=== PATIENT | male | born 1955 | race Asian ===

== ENCOUNTER 2016-11-16 07:43 | Outpatient (CLI) | payer OTHER ==
[~2016-11-16 07:43] MED LIST: B-121000 MCG SL; CELE200C2 PO; EZET10TA13 PO; FUROSEMIDE40 MG PO; GLIP10TA55 PO; INSU100P SC; INSUINJP SC; LISI20TA11 PO; LOFIBRA160 MG PO; METF500T PO; PRAVACHOL20 MG PO; WARFARIN5 MG PO
== END 2016-11-16 08:43 | disposition home or self-care (01) ==
LOC: LABW 07:43
DX: E11.9 Type 2 diabetes mellitus without complications (principal); D68.8 Other specified coagulation defects
CPT/HCPCS: 36415; 83036; 85610

== ENCOUNTER 2016-11-25 08:00 | Outpatient (CLI) | payer OTHER | END 2016-11-25 19:56 | disposition home or self-care (01) | LOC: LABW 08:00 | DX: M25.512 Pain in left shoulder (principal); E11.9 Type 2 diabetes mellitus without complications; D68.9 Coagulation defect, unspecified | CPT/HCPCS: 36415; 84681; 85610 ==

== ENCOUNTER 2016-12-02 10:45 | Inpatient (IN) | payer OTHER ==
[~2016-12-02] VITALS: Ht 182.9 cm; Wt 127.5 kg
[2016-12-02 12:00] VITALS: BP 145/84; TEMP 99.1
[2016-12-02 12:39] LABS: PLATELET COUNT 260 K/uL (142-355)
[2016-12-02 13:43] LABS: POTASSIUM 3.6 mmol/L (3.6-5.2); SODIUM 139 mmol/L (136-145)
[2016-12-02 13:44] VITALS: BP 145/84; TEMP 99.1; Ht 182.9 cm; Wt 127.5 kg
[2016-12-02 16:00] VITALS: BP 142/78; TEMP 98.6
[2016-12-02 20:20] VITALS: BP 115/66; TEMP 99.2
[2016-12-03 00:24] VITALS: BP 119/60; TEMP 98.9
[2016-12-03 05:08] LABS: PLATELET COUNT 263 K/uL (142-355)
[2016-12-03 05:29] LABS: POTASSIUM 4.3 mmol/L (3.6-5.2); SODIUM 137 mmol/L (136-145)
[2016-12-03 05:34] VITALS: BP 147/97; TEMP 98.3
[2016-12-03 05:41] LABS: PARTIAL THROMBOPLASTIN TIME 36.6 SECONDS (24.5-33.6)
[2016-12-03 08:00] VITALS: BP 141/94; TEMP 97.8
[2016-12-03] MEDS ORDERED: FLUTMIS6 INH (10:47)
[2016-12-03] MEDS ORDERED: TUDORZA PR400 MG/ACT IN (10:49)
[2016-12-03] MEDS ORDERED: LOFIBRA160 MG OR (10:51)
[2016-12-03] MEDS ORDERED: NOVOLOG SC (10:53)
[2016-12-03 12:00] VITALS: BP 135/92; TEMP 97.8
[2016-12-03 16:00] VITALS: BP 112/60; TEMP 98.2
[2016-12-03 20:09] VITALS: BP 132/74; TEMP 98.8
[2016-12-04 00:04] VITALS: BP 117/68; TEMP 98.3
[2016-12-04 05:35] VITALS: BP 122/74; TEMP 98.2
[2016-12-04 06:38] LABS: PLATELET COUNT 227 K/uL (142-355); POTASSIUM 3.9 mmol/L (3.6-5.2); SODIUM 138 mmol/L (136-145)
[2016-12-04 08:00] VITALS: BP 131/76; TEMP 98.9
[2016-12-04 12:00] VITALS: BP 108/58; TEMP 97.8
[2016-12-04 16:00] VITALS: BP 148/51; TEMP 97.8
[2016-12-04 20:00] VITALS: BP 126/60; TEMP 99.2
[2016-12-05 00:25] VITALS: BP 115/68; TEMP 98.3
[2016-12-05 05:35] VITALS: BP 128/78; TEMP 98.2
[2016-12-05 06:17] LABS: PLATELET COUNT 229 K/uL (142-355)
[2016-12-05 06:29] LABS: SODIUM 136 mmol/L (136-145)
[2016-12-05 08:15] VITALS: BP 155/96; TEMP 98.9
[2016-12-05 12:00] VITALS: BP 152/97; TEMP 97.6
== END 2016-12-05 12:20 | disposition home or self-care (01) | DRG 392 ==
LOC: MED/SURG 10:45
PROVIDERS: Emergency Medicine; ADMIT Internal Medicine
DX: K57.32 Diverticulitis of large intestine without perforation or abscess without bleeding (principal); N39.0 Urinary tract infection, site not specified; R10.30 Lower abdominal pain, unspecified; E11.9 Type 2 diabetes mellitus without complications; N40.0 Benign prostatic hyperplasia without lower urinary tract symptoms
CPT/HCPCS: 36415; 36591; 80053; 81000; 82150; 82948; 83036; 83690; 84153; 84681; 85027; 85610; 85730; 87088; 94640; 94664; 94760; 96365; 96366; 96367; 96372; J0744; J2175; J3490; Q9963

== ENCOUNTER 2016-12-21 07:36 | Outpatient (CLI) | payer OTHER ==
[~2016-12-21 07:36] MED LIST changes: +FLUTMIS6 INH; +LOFIBRA160 MG OR; +NOVOLOG SC; +TUDORZA PR400 MG/ACT IN
== END 2016-12-21 19:05 | disposition home or self-care (01) ==
LOC: MRI 07:36
DX: M75.52 Bursitis of left shoulder (principal)

== ENCOUNTER 2016-12-22 11:15 | Outpatient (CLI) | payer OTHER ==
[2016-12-22 12:59] LABS: POTASSIUM 3.8 mmol/L (3.6-5.2)
== END 2016-12-22 19:08 | disposition home or self-care (01) ==
LOC: LABW 11:15
PROVIDERS: Internal Medicine Nephrology
DX: R80.1 Persistent proteinuria, unspecified (principal)
CPT/HCPCS: 36415; 80069; 81000; 82570; 83516; 84155; 86039; 86160; 86225; 86255; 86317; 86704; 86705; 86803

== ENCOUNTER 2017-02-03 07:42 | Outpatient (CLI) | payer OTHER | END 2017-02-03 19:58 | disposition home or self-care (01) | LOC: LABW 07:42 | DX: E11.9 Type 2 diabetes mellitus without complications (principal); D68.8 Other specified coagulation defects | CPT/HCPCS: 36415; 83036; 85610 ==

== ENCOUNTER 2017-03-03 14:15 | Outpatient (CLI) | payer OTHER ==
[2017-03-03 15:06] LABS: POTASSIUM 3.7 mmol/L (3.6-5.2)
[2017-03-03 15:32] LABS: PLATELET COUNT 270 K/uL (142-355)
== END 2017-03-03 19:22 | disposition home or self-care (01) ==
LOC: LABW 14:15
PROVIDERS: Internal Medicine Nephrology
DX: D68.8 Other specified coagulation defects (principal); R80.1 Persistent proteinuria, unspecified
CPT/HCPCS: 36415; 80069; 81000; 82570; 84155; 85027; 85610

== ENCOUNTER 2017-03-14 08:56 | Outpatient (CLI) | payer OTHER ==
[2017-03-14 09:52] LABS: POTASSIUM 3.8 mmol/L (3.6-5.2)
== END 2017-03-14 19:06 | disposition home or self-care (01) ==
LOC: LABW 08:56
PROVIDERS: Internal Medicine Nephrology
DX: R80.1 Persistent proteinuria, unspecified (principal)
CPT/HCPCS: 36415; 80048

== ENCOUNTER 2017-04-11 09:03 | Outpatient (CLI) | payer OTHER | END 2017-04-11 19:29 | disposition home or self-care (01) | LOC: LAB 09:03 → CT 09:03 | DX: K57.32 Diverticulitis of large intestine without perforation or abscess without bleeding (principal) | CPT/HCPCS: 36415; 82565; 84520; 85610; Q9963 ==

== ENCOUNTER 2017-04-20 17:07 | Inpatient (IN) | payer OTHER ==
[~2017-04-20] VITALS: Ht 182.9 cm; Wt 122.9 kg
--- NOTE | 2017-04-20 17:04 | NUR ---
PT TO ROOM 1104. ORIENTED TO ROOM AND CONTROLS. PT VERBALIZED UNDERSTANDING. ASSESSMENT COMPLETE. 1830- IV STARTED TO L AC WITH 22G ANGIOCATH X 1 ATTEMPT. PT TOLERATED WELL. LABS DRAWN.
[2017-04-20 18:32] VITALS: BP 90/56; TEMP 98; Ht 182.9 cm; Wt 122.9 kg
[2017-04-20 19:05] LABS: PLATELET COUNT 326 K/uL (142-355)
--- NOTE | 2017-04-20 19:10 | NUR ---
Orthostatic blood pressure (vital signs) taken at 1745 Layin.2, 92, 22, 94/59, 98% Sittin.2, 100, 21, 105/61, 98% Standin.2, 103, 22, 112/58, 97%
[2017-04-20 19:29] LABS: POTASSIUM 4.2 mmol/L (3.6-5.2); SODIUM 138 mmol/L (136-145)
[2017-04-20 20:00] VITALS: BP 113/84; TEMP 99.2
[2017-04-21 00:01] VITALS: BP 102/72; TEMP 98
[2017-04-21] MEDS ORDERED: TAMS0.4C PO (00:56)
[2017-04-21] MEDS ORDERED: EZET10TA13 OR (00:57)
[2017-04-21] MEDS ORDERED: FENOFIBRATE50 MG PO (00:59)
[2017-04-21] MEDS ORDERED: METR250T19 PO (01:03)
[2017-04-21] MEDS ORDERED: CIPRO500 MG PO (01:04)
[2017-04-21] MEDS ORDERED: FLUTMIS6 INH (01:06)
[2017-04-21 04:00] VITALS: BP 90/66; TEMP 97.7
[2017-04-21 05:04] LABS: PLATELET COUNT 307 K/uL (142-355)
[2017-04-21 05:29] LABS: POTASSIUM 4.5 mmol/L (3.6-5.2)
[2017-04-21 08:00] VITALS: BP 116/84; TEMP 98
[2017-04-21 12:09] VITALS: BP 122/70; TEMP 97.3
[2017-04-21 15:59] VITALS: BP 100/58; TEMP 98
[2017-04-21 20:00] VITALS: BP 100/44; TEMP 98.3
[2017-04-22] VITALS: BP 107/50; TEMP 98.4
[2017-04-22 04:00] VITALS: BP 103/68; TEMP 97.7
[2017-04-22 05:12] LABS: SODIUM 142 mmol/L (136-145)
[2017-04-22 05:18] LABS: PLATELET COUNT 303 K/uL (142-355)
[2017-04-22 05:42] LABS: PARTIAL THROMBOPLASTIN TIME 34.3 SECONDS (24.5-33.6)
[2017-04-22 08:00] VITALS: BP 109/67; TEMP 97.7
[2017-04-22 12:00] VITALS: BP 129/80; TEMP 98.4
[2017-04-22 16:00] VITALS: BP 102/57; TEMP 98.3
[2017-04-22 20:00] VITALS: BP 110/72; TEMP 98.1
[2017-04-23] VITALS: BP 109/70; TEMP 97.7
[2017-04-23 04:00] VITALS: BP 119/77; TEMP 97
[2017-04-23 06:25] LABS: PLATELET COUNT 264 K/uL (142-355)
[2017-04-23 07:09] LABS: POTASSIUM 4.1 mmol/L (3.6-5.2); SODIUM 141 mmol/L (136-145)
[2017-04-23 07:19] LABS: PARTIAL THROMBOPLASTIN TIME 28.5 SECONDS (24.5-33.6)
[2017-04-23 08:00] VITALS: BP 122/82; TEMP 98
[2017-04-23 12:00] VITALS: BP 107/71; TEMP 98.1
--- NOTE | 2017-04-23 15:45 | NUR ---
IV D/C'd. NO REDNESS OR EDEMA OBSERVED. DISCHARGE INSTRUCTIONS SIGNED AND GIVEN. Pt. EXIT OUT FRONT ENTRANCE AMBULATING. NO DISTRESS OBSERVED.
== END 2017-04-23 15:45 | disposition home or self-care (01) | DRG 315 ==
LOC: MED/SURG 17:07
PROVIDERS: Emergency Medicine; ADMIT Internal Medicine
DX: I95.89 Other hypotension (principal); K57.92 Diverticulitis of intestine, part unspecified, without perforation or abscess without bleeding; R53.1 Weakness; E11.40 Type 2 diabetes mellitus with diabetic neuropathy, unspecified; J44.9 Chronic obstructive pulmonary disease, unspecified; E11.649 Type 2 diabetes mellitus with hypoglycemia without coma; Z79.4 Long term (current) use of insulin; Z96.41 Presence of insulin pump (external) (internal)
CPT/HCPCS: 36415; 80053; 81000; 82085; 82533; 82550; 82948; 83735; 84443; 84484; 85027; 85610; 85651; 85730; 93005; 96361; 96365; 96372; 99220; G0378; G0379

== ENCOUNTER 2017-06-12 08:26 | Outpatient (CLI) | payer OTHER ==
[~2017-06-12 08:26] MED LIST changes: +CIPRO500 MG PO; +EZET10TA13 OR; +FENOFIBRATE50 MG PO; +METR250T19 PO; +TAMS0.4C PO
== END 2017-06-12 09:30 | disposition home or self-care (01) ==
LOC: LABW 08:26
DX: D68.8 Other specified coagulation defects (principal); E11.9 Type 2 diabetes mellitus without complications
CPT/HCPCS: 36415; 83036; 85610

== ENCOUNTER 2017-06-15 11:31 | Outpatient (CLI) | payer OTHER ==
[2017-06-15 12:21] LABS: PLATELET COUNT 240 K/uL (142-355)
[2017-06-15 12:48] LABS: POTASSIUM 4.1 mmol/L (3.6-5.2)
== END 2017-06-15 19:58 | disposition home or self-care (01) ==
LOC: LABW 11:31
PROVIDERS: Internal Medicine Nephrology
DX: R80.1 Persistent proteinuria, unspecified (principal)
CPT/HCPCS: 36415; 80069; 81000; 82570; 84155; 85027

== ENCOUNTER 2017-07-28 07:44 | Outpatient (CLI) | payer OTHER | END 2017-07-28 08:45 | disposition home or self-care (01) | LOC: LABW 07:44 | DX: D68.8 Other specified coagulation defects (principal) | CPT/HCPCS: 36415; 85610 ==

== ENCOUNTER 2017-08-28 08:00 | Outpatient (CLI) | payer OTHER | END 2017-08-28 09:00 | disposition home or self-care (01) | LOC: EDSTATUS 08:00 → LABW 08:00 | DX: D68.8 Other specified coagulation defects (principal) | CPT/HCPCS: 36415; 85610 ==

== ENCOUNTER 2017-10-10 07:54 | Outpatient (CLI) | payer OTHER | END 2017-10-10 19:07 | disposition home or self-care (01) | LOC: LABW 07:54 | DX: E11.9 Type 2 diabetes mellitus without complications (principal); D68.8 Other specified coagulation defects | CPT/HCPCS: 36415; 83036; 85610 ==

== ENCOUNTER 2017-10-31 07:58 | Outpatient (CLI) | payer OTHER | END 2017-10-31 18:00 | disposition home or self-care (01) | LOC: LABW 07:58 | DX: D68.8 Other specified coagulation defects (principal) | CPT/HCPCS: 36415; 85610 ==

== ENCOUNTER 2017-12-01 09:34 | Outpatient (CLI) | payer OTHER ==
[2017-12-01 10:20] LABS: PLATELET COUNT 293 K/uL (142-355)
[2017-12-01 10:45] LABS: POTASSIUM 4.1 mmol/L (3.6-5.2)
== END 2017-12-01 19:28 | disposition home or self-care (01) ==
LOC: LABW 09:34
PROVIDERS: Internal Medicine Nephrology
DX: D68.8 Other specified coagulation defects (principal); R80.1 Persistent proteinuria, unspecified
CPT/HCPCS: 36415; 80069; 82570; 84155; 85027; 85610

== ENCOUNTER 2017-12-04 07:51 | Outpatient (CLI) | payer OTHER | END 2017-12-04 19:39 | disposition home or self-care (01) | LOC: RESP 07:51 | DX: J44.9 Chronic obstructive pulmonary disease, unspecified (principal) | CPT/HCPCS: 94664 ==

== ENCOUNTER 2017-12-27 08:15 | Outpatient (CLI) | payer OTHER | END 2017-12-27 19:20 | disposition home or self-care (01) | LOC: LABW 08:15 | DX: E11.9 Type 2 diabetes mellitus without complications (principal); D68.8 Other specified coagulation defects | CPT/HCPCS: 36415; 83036; 85610 ==

== ENCOUNTER 2018-01-03 07:58 | Outpatient (CLI) | payer OTHER | END 2018-01-03 22:10 | disposition home or self-care (01) | LOC: LABW 07:58 | DX: E11.9 Type 2 diabetes mellitus without complications (principal) | CPT/HCPCS: 36415; 82947; 83036; 84681 ==

== ENCOUNTER 2018-02-28 09:50 | Outpatient (CLI) | payer OTHER | END 2018-02-28 20:54 | disposition home or self-care (01) | LOC: LABW 09:50 | DX: D68.8 Other specified coagulation defects (principal) | CPT/HCPCS: 36415; 85610 ==

== ENCOUNTER 2018-03-22 07:57 | Outpatient (CLI) | payer OTHER | END 2018-03-22 22:03 | disposition home or self-care (01) | LOC: RAD 07:57 | DX: M54.5 Low back pain (principal) ==

== ENCOUNTER 2018-05-17 10:17 | Outpatient (CLI) | payer OTHER | END 2018-05-17 19:36 | disposition home or self-care (01) | LOC: LABW 10:17 | DX: E11.9 Type 2 diabetes mellitus without complications (principal); D68.8 Other specified coagulation defects | CPT/HCPCS: 36415; 82947; 83036; 84681; 85610 ==

== ENCOUNTER 2018-05-31 07:42 | Outpatient (CLI) | payer OTHER | END 2018-05-31 22:46 | disposition home or self-care (01) | LOC: LABW 07:42 | DX: D68.8 Other specified coagulation defects (principal) | CPT/HCPCS: 36415; 85610 ==

== ENCOUNTER 2018-06-12 10:32 | Inpatient (IN) | payer OTHER ==
[~2018-06-12] VITALS: Ht 180.3 cm; Wt 137.7 kg
[2018-06-12] VITALS (14 sets, daily range): BP systolic 80–120; BP diastolic 50–89; TEMP 99.8–103.3; Ht 180.3 cm; Wt 137.7 kg
[2018-06-12 12:12] LABS: PLATELET COUNT 203 K/uL (142-355)
[2018-06-12 12:42] LABS: POTASSIUM 4.1 mmol/L (3.6-5.2)
[2018-06-12] MEDS ORDERED: FINASTERIDE5 MG PO (15:05)
[2018-06-12] MEDS ORDERED: GABA300C2 PO (15:05)
[2018-06-12] MEDS ORDERED: TIZA4TAB5 PO (15:06)
[2018-06-12] MEDS ORDERED: TUDORZA PR400 MG/ACT IN (15:06)
[2018-06-13] VITALS (30 sets, daily range): BP systolic 80–180; BP diastolic 48–90; TEMP 98.3–99
[2018-06-13 07:12] LABS: PLATELET COUNT 160 K/uL (142-355)
[2018-06-13 08:03] LABS: POTASSIUM 4.2 mmol/L (3.6-5.2)
[2018-06-14] VITALS (20 sets, daily range): BP systolic 100–144; BP diastolic 58–98; TEMP 92–99.7
[2018-06-14 09:29] LABS: PLATELET COUNT 160 K/uL (142-355)
[2018-06-14 09:38] LABS: POTASSIUM 4.3 mmol/L (3.6-5.2)
[2018-06-15] VITALS (22 sets, daily range): BP systolic 11–154; BP diastolic 51–92; TEMP 98.2–99
[2018-06-15 08:12] LABS: PLATELET COUNT 165 K/uL (142-355)
[2018-06-15 08:23] LABS: POTASSIUM 4.7 mmol/L (3.6-5.2)
[2018-06-16] VITALS (14 sets, daily range): BP systolic 118–168; BP diastolic 57–91; TEMP 98.3–99.6
[2018-06-16 07:14] LABS: PLATELET COUNT 188 K/uL (142-355)
[2018-06-16 07:25] LABS: POTASSIUM 4.6 mmol/L (3.6-5.2)
[2018-06-17 00:11] VITALS: BP 145/74; TEMP 98.1
[2018-06-17 04:05] VITALS: BP 141/83; TEMP 98.4
[2018-06-17 06:47] LABS: PLATELET COUNT 196 K/uL (142-355)
[2018-06-17 06:56] LABS: POTASSIUM 4.7 mmol/L (3.6-5.2)
[2018-06-17 08:00] VITALS: BP 128/68; TEMP 98.6
[2018-06-17 12:00] VITALS: BP 134/79; TEMP 98.3
[2018-06-17 16:00] VITALS: BP 127/80; TEMP 98.6
[2018-06-17 20:00] VITALS: BP 148/88; TEMP 98.7
[2018-06-18] VITALS: BP 126/83; TEMP 98.5
[2018-06-18 04:00] VITALS: BP 131/78; TEMP 98.1
[2018-06-18 08:10] VITALS: BP 146/80; TEMP 98.3
[2018-06-18 12:06] VITALS: BP 139/74; TEMP 98.6
== END 2018-06-18 18:30 | disposition home or self-care (01) | DRG 871 ==
LOC: MED/SURG 10:32 → ICU 16:15 → MED/SURG 06-16 11:29
PROVIDERS: ADMIT Internal Medicine
DX: A40.1 Sepsis due to streptococcus, group B (principal); J18.8 Other pneumonia, unspecified organism; D68.8 Other specified coagulation defects; J44.1 Chronic obstructive pulmonary disease with (acute) exacerbation; J44.0 Chronic obstructive pulmonary disease with (acute) lower respiratory infection; L03.115 Cellulitis of right lower limb; I10 Essential (primary) hypertension; E78.4 Other hyperlipidemia; Z85.118 Personal history of other malignant neoplasm of bronchus and lung; K57.90 Diverticulosis of intestine, part unspecified, without perforation or abscess without bleeding; G47.33 Obstructive sleep apnea (adult) (pediatric); E11.42 Type 2 diabetes mellitus with diabetic polyneuropathy; I95.89 Other hypotension; Z79.01 Long term (current) use of anticoagulants; Z79.4 Long term (current) use of insulin; E83.42 Hypomagnesemia
CPT/HCPCS: 36415; 36600; 80053; 80202; 82805; 82962; 83036; 83605; 83735; 84550; 85027; 85610; 85651; 87040; 87070; 87077; 87185; 87186; 87205; 93005; 94640; 94664; 94760; J0290; J0696; J1815; J1956; J2543; J3370; J3475; J7040

== ENCOUNTER 2018-06-26 07:53 | Outpatient (CLI) | payer OTHER ==
[~2018-06-26 07:53] MED LIST changes: +FINASTERIDE5 MG PO; +GABA300C2 PO; +TIZA4TAB5 PO
[2018-06-26 08:52] LABS: POTASSIUM 4.2 mmol/L (3.6-5.2)
== END 2018-06-26 19:56 | disposition home or self-care (01) ==
LOC: LABW 07:53
PROVIDERS: Internal Medicine Nephrology
DX: R80.1 Persistent proteinuria, unspecified (principal)
CPT/HCPCS: 36415; 80048; 82570; 84155

== ENCOUNTER 2018-08-13 10:17 | Outpatient (CLI) | payer OTHER | END 2018-08-13 19:55 | disposition home or self-care (01) | LOC: LABW 10:17 | DX: L03.115 Cellulitis of right lower limb (principal); D68.9 Coagulation defect, unspecified; E11.9 Type 2 diabetes mellitus without complications | CPT/HCPCS: 36415; 83036; 85610; 87070; 87077; 87185; 87205 ==

== ENCOUNTER 2018-10-29 09:12 | Outpatient (CLI) | payer OTHER ==
[2018-10-29 09:52] LABS: PLATELET COUNT 251 K/uL (142-355)
== END 2018-10-29 19:04 | disposition home or self-care (01) ==
LOC: LABW 09:12
PROVIDERS: Internal Medicine
DX: Z00.00 Encounter for general adult medical examination without abnormal findings (principal); D68.9 Coagulation defect, unspecified; E11.9 Type 2 diabetes mellitus without complications
CPT/HCPCS: 36415; 80053; 80061; 81000; 82043; 82570; 83036; 84439; 84443; 85027; 85610

== ENCOUNTER 2018-12-05 08:17 | Outpatient (CLI) | payer OTHER | END 2018-12-05 22:04 | disposition home or self-care (01) | LOC: LABW 08:17 | DX: E11.42 Type 2 diabetes mellitus with diabetic polyneuropathy (principal); R79.1 Abnormal coagulation profile | CPT/HCPCS: 36415; 82947; 84681; 85610; 86341 ==

== ENCOUNTER 2019-01-02 07:48 | Outpatient (CLI) | payer OTHER | END 2019-01-02 20:00 | disposition home or self-care (01) | LOC: LABW 07:48 → RESP 07:48 → LABW 20:00 | DX: D68.9 Coagulation defect, unspecified (principal); R09.02 Hypoxemia; R06.02 Shortness of breath | CPT/HCPCS: 36415; 85610; 93306 ==

== ENCOUNTER 2019-02-19 11:02 | Outpatient (CLI) | payer OTHER | END 2019-02-19 23:46 | disposition home or self-care (01) | LOC: LABW 11:02 | DX: D68.8 Other specified coagulation defects (principal); E11.9 Type 2 diabetes mellitus without complications | CPT/HCPCS: 36415; 83036; 85610; 87070; 87077; 87186; 87205 ==

== ENCOUNTER 2019-03-04 08:02 | Outpatient (CLI) | payer OTHER | END 2019-03-04 19:29 | disposition home or self-care (01) | LOC: LABW 08:02 | DX: D68.8 Other specified coagulation defects (principal) | CPT/HCPCS: 36415; 85610 ==

== ENCOUNTER 2019-03-14 07:58 | Outpatient (CLI) | payer OTHER | END 2019-03-14 19:47 | disposition home or self-care (01) | LOC: RESP 07:58 | DX: J44.9 Chronic obstructive pulmonary disease, unspecified (principal) | CPT/HCPCS: 94664 ==

== ENCOUNTER 2019-04-15 09:38 | Outpatient (CLI) | payer OTHER | END 2019-04-15 19:46 | disposition home or self-care (01) | LOC: LABW 09:38 | DX: D68.8 Other specified coagulation defects (principal) | CPT/HCPCS: 36415; 85610 ==

== ENCOUNTER 2019-06-04 07:46 | Outpatient (CLI) | payer OTHER | END 2019-06-04 22:24 | disposition home or self-care (01) | LOC: LABW 07:46 | DX: D68.8 Other specified coagulation defects (principal); E11.9 Type 2 diabetes mellitus without complications | CPT/HCPCS: 36415; 83036; 85610 ==

== ENCOUNTER 2019-07-16 07:57 | Outpatient (CLI) | payer OTHER | END 2019-07-16 22:48 | disposition home or self-care (01) | LOC: LABW 07:57 | DX: D68.8 Other specified coagulation defects (principal) | CPT/HCPCS: 36415; 85610 ==

== ENCOUNTER 2019-08-05 09:23 | Outpatient (CLI) | payer OTHER | END 2019-08-05 23:15 | disposition home or self-care (01) | LOC: LABW 09:23 | DX: D68.8 Other specified coagulation defects (principal) | CPT/HCPCS: 36415; 85610 ==

== ENCOUNTER 2019-09-16 08:02 | Outpatient (CLI) | payer OTHER | END 2019-09-16 19:24 | disposition home or self-care (01) | LOC: LABW 08:02 | DX: D68.8 Other specified coagulation defects (principal) | CPT/HCPCS: 36415; 85610 ==

== ENCOUNTER 2019-10-23 07:41 | Outpatient (CLI) | payer OTHER ==
[2019-10-23 08:14] LABS: PLATELET COUNT 167 K/uL (142-355)
== END 2019-10-23 21:49 | disposition home or self-care (01) ==
LOC: LABW 07:41
PROVIDERS: Internal Medicine
DX: Z00.00 Encounter for general adult medical examination without abnormal findings (principal); D68.8 Other specified coagulation defects; Z12.5 Encounter for screening for malignant neoplasm of prostate; E11.9 Type 2 diabetes mellitus without complications; N40.0 Benign prostatic hyperplasia without lower urinary tract symptoms
CPT/HCPCS: 36415; 80053; 80061; 81000; 83036; 84153; 84439; 84443; 85027; 85610

== ENCOUNTER 2019-12-24 15:26 | Outpatient (CLI) | payer OTHER | END 2019-12-24 20:13 | disposition home or self-care (01) | LOC: LABW 15:26 | DX: D68.8 Other specified coagulation defects (principal) | CPT/HCPCS: 36415; 85610 ==

== ENCOUNTER 2020-01-10 08:01 | Outpatient (CLI) | payer OTHER | END 2020-01-10 19:06 | disposition home or self-care (01) | LOC: LABW 08:01 | DX: D68.8 Other specified coagulation defects (principal) | CPT/HCPCS: 36415; 85610 ==

== ENCOUNTER 2020-01-26 14:24 | Emergency (ER) | payer OTHER ==
[~2020-01-26] VITALS: Ht 180.3 cm; Wt 149.7 kg
[2020-01-26 16:12] VITALS: BP 158/90; TEMP 98
== END 2020-01-26 16:13 | disposition home or self-care (01) ==
LOC: ED 14:24
DX: J06.9 Acute upper respiratory infection, unspecified (principal)
CPT/HCPCS: 87502; 87651; 93005; 99283

== ENCOUNTER 2020-04-01 11:16 | Outpatient (CLI) | payer OTHER | END 2020-04-01 22:22 | disposition home or self-care (01) | LOC: LAB 11:16 | DX: L02.828 Furuncle of other sites (principal) | CPT/HCPCS: 87070; 87205 ==

== ENCOUNTER 2020-04-03 07:43 | Outpatient (CLI) | payer OTHER ==
[2020-04-03 08:25] LABS: PLATELET COUNT 198 K/uL (142-355)
[2020-04-03 08:28] LABS: POTASSIUM 4.4 mmol/L (3.6-5.2)
== END 2020-04-03 23:00 | disposition home or self-care (01) ==
LOC: LABW 07:43
PROVIDERS: Internal Medicine
DX: E11.9 Type 2 diabetes mellitus without complications (principal); D68.8 Other specified coagulation defects
CPT/HCPCS: 36415; 80053; 80061; 81000; 82043; 82570; 83036; 84439; 84443; 85027; 85610

== ENCOUNTER 2020-05-27 10:27 | Outpatient (CLI) | payer OTHER ==
[2020-05-27 12:53] LABS: PLATELET COUNT 192 K/uL (142-355)
== END 2020-05-27 20:24 | disposition home or self-care (01) ==
LOC: LABW 10:27
PROVIDERS: Internal Medicine
DX: F41.8 Other specified anxiety disorders (principal); D68.8 Other specified coagulation defects
CPT/HCPCS: 36415; 80053; 84439; 84443; 85027; 85610

== ENCOUNTER 2020-07-29 09:27 | Outpatient (CLI) | payer OTHER ==
[2020-07-29 10:10] LABS: POTASSIUM 3.7 mmol/L (3.6-5.2)
== END 2020-07-29 20:12 | disposition home or self-care (01) ==
LOC: LABW 09:27 → US 10:30 → LABW 20:12
PROVIDERS: Internal Medicine
DX: R42 Dizziness and giddiness (principal); Z79.899 Other long term (current) drug therapy; D68.8 Other specified coagulation defects; E11.42 Type 2 diabetes mellitus with diabetic polyneuropathy
CPT/HCPCS: 36415; 80053; 80061; 83036; 85610

== ENCOUNTER 2020-08-25 15:24 | Outpatient (CLI) | payer OTHER | END 2020-08-25 19:15 | disposition home or self-care (01) | LOC: RAD 15:24 | DX: J40 Bronchitis, not specified as acute or chronic (principal) ==

== ENCOUNTER 2020-10-01 07:29 | Outpatient (CLI) | payer OTHER | END 2020-10-01 19:00 | disposition home or self-care (01) | LOC: CT 07:29 | PROVIDERS: ATTEND Internal Medicine Sleep Medicine | DX: Z87.891 Personal history of nicotine dependence (principal); D68.8 Other specified coagulation defects | CPT/HCPCS: 36415; 85610; G0297-TC ==

== ENCOUNTER 2020-11-18 07:28 | Outpatient (CLI) | payer OTHER ==
[2020-11-18 08:48] LABS: POTASSIUM 3.7 mmol/L (3.6-5.2)
== END 2020-11-18 21:36 | disposition home or self-care (01) ==
LOC: LABW 07:28
PROVIDERS: ATTEND Internal Medicine
DX: D68.8 Other specified coagulation defects (principal); E11.42 Type 2 diabetes mellitus with diabetic polyneuropathy
CPT/HCPCS: 36415; 80053; 80061; 83036; 85610

== ENCOUNTER 2021-01-11 07:15 | Outpatient (CLI) | payer OTHER | END 2021-01-11 22:44 | disposition home or self-care (01) | LOC: LABW 07:15 | PROVIDERS: ATTEND Internal Medicine | DX: D68.8 Other specified coagulation defects (principal) | CPT/HCPCS: 36415; 85610 ==

== ENCOUNTER 2021-03-24 07:47 | Outpatient (CLI) | payer OTHER | END 2021-03-24 20:36 | disposition home or self-care (01) | LOC: LABW 07:47 | PROVIDERS: ATTEND Internal Medicine | DX: D68.8 Other specified coagulation defects (principal); E11.42 Type 2 diabetes mellitus with diabetic polyneuropathy | CPT/HCPCS: 36415; 80053; 80061; 83036; 85610 ==

== ENCOUNTER 2021-03-26 07:56 | Outpatient (CLI) | payer OTHER | END 2021-03-26 22:38 | disposition home or self-care (01) | LOC: LABW 07:56 | PROVIDERS: ATTEND Internal Medicine | DX: E11.9 Type 2 diabetes mellitus without complications (principal); R82.998 Other abnormal findings in urine | CPT/HCPCS: 81000; 87077; 87086; 87088; 87186 ==

== ENCOUNTER 2021-05-07 08:00 | Outpatient (CLI) | payer OTHER | END 2021-05-07 23:59 | disposition home or self-care (01) | LOC: RAD 08:00 | PROVIDERS: ATTEND Physician Assistant | DX: M25.512 Pain in left shoulder (principal) ==

== ENCOUNTER 2021-05-27 14:53 | Outpatient (CLI) | payer OTHER ==
[2021-05-27 15:44] LABS: POTASSIUM 4.4 mmol/L (3.6-5.2)
== END 2021-05-27 19:16 | disposition home or self-care (01) ==
LOC: LABW 14:53
PROVIDERS: ATTEND Internal Medicine
DX: D68.8 Other specified coagulation defects (principal); E11.42 Type 2 diabetes mellitus with diabetic polyneuropathy
CPT/HCPCS: 36415; 80053; 80061; 83036; 85610

== ENCOUNTER 2021-08-02 07:42 | Outpatient (CLI) | payer OTHER | END 2021-08-02 20:10 | disposition home or self-care (01) | LOC: LABW 07:42 | PROVIDERS: ATTEND Internal Medicine | DX: I73.9 Peripheral vascular disease, unspecified (principal) | CPT/HCPCS: 36415; 85610 ==

== ENCOUNTER 2021-09-21 10:44 | Outpatient (CLI) | payer OTHER | END 2021-09-21 19:22 | disposition home or self-care (01) | LOC: CT 10:44 | PROVIDERS: ATTEND Internal Medicine Sleep Medicine | DX: Z09 Encounter for follow-up examination after completed treatment for conditions other than malignant neoplasm (principal); Z87.891 Personal history of nicotine dependence ==

== ENCOUNTER 2021-10-22 14:07 | Outpatient (CLI) | payer OTHER | END 2021-10-22 19:03 | disposition home or self-care (01) | LOC: LAB 14:07 | PROVIDERS: ATTEND Internal Medicine | DX: L03.116 Cellulitis of left lower limb (principal) | CPT/HCPCS: 87070; 87205 ==

== ENCOUNTER 2021-10-27 09:01 | Outpatient (CLI) | payer OTHER | END 2021-10-27 20:10 | disposition home or self-care (01) | LOC: US 09:01 | PROVIDERS: ATTEND Internal Medicine | DX: R93.429 Abnormal radiologic findings on diagnostic imaging of unspecified kidney (principal) ==

== ENCOUNTER 2021-11-16 07:44 | Outpatient (CLI) | payer OTHER ==
[2021-11-16 08:46] LABS: POTASSIUM 3.9 mmol/L (3.6-5.2)
[2021-11-16 08:48] LABS: PLATELET COUNT 214 K/uL (142-355)
== END 2021-11-16 19:06 | disposition home or self-care (01) ==
LOC: LABW 07:44
PROVIDERS: ATTEND Internal Medicine
DX: E11.9 Type 2 diabetes mellitus without complications (principal)
CPT/HCPCS: 36415; 80053; 80061; 81000; 83036; 84439; 84443; 85027

== ENCOUNTER 2021-12-31 07:42 | Outpatient (CLI) | payer OTHER ==
[2021-12-31 08:05] LABS: POTASSIUM 4.2 mmol/L (3.6-5.2)
== END 2021-12-31 19:59 | disposition home or self-care (01) ==
LOC: LABW 07:42
PROVIDERS: ATTEND Internal Medicine Cardiovascular Disease
DX: Z79.899 Other long term (current) drug therapy (principal); R06.09 Other forms of dyspnea; E11.9 Type 2 diabetes mellitus without complications; I73.9 Peripheral vascular disease, unspecified
CPT/HCPCS: 36415; 80048; 83036; 83880; 85610

== ENCOUNTER 2022-01-19 12:43 | Outpatient (CLI) | payer OTHER | END 2022-01-19 19:40 | disposition home or self-care (01) | LOC: RESP 12:43 | PROVIDERS: ATTEND Nurse Practitioner Family | DX: J44.9 Chronic obstructive pulmonary disease, unspecified (principal) ==

== ENCOUNTER 2022-02-08 08:08 | Outpatient (CLI) | payer OTHER | END 2022-02-08 18:55 | disposition home or self-care (01) | LOC: LABW 08:08 | PROVIDERS: ATTEND Internal Medicine | DX: I73.9 Peripheral vascular disease, unspecified (principal) | CPT/HCPCS: 36415; 85610 ==

== ENCOUNTER 2022-03-11 09:26 | Outpatient (CLI) | payer OTHER | END 2022-03-11 18:55 | disposition home or self-care (01) | LOC: US 09:26 | PROVIDERS: ATTEND Internal Medicine | DX: K76.89 Other specified diseases of liver (principal); N28.1 Cyst of kidney, acquired ==

== ENCOUNTER 2022-03-24 07:59 | Outpatient (CLI) | payer OTHER | END 2022-03-24 19:01 | disposition home or self-care (01) | LOC: RAD 07:59 | PROVIDERS: ATTEND Internal Medicine | DX: E11.9 Type 2 diabetes mellitus without complications (principal); I73.9 Peripheral vascular disease, unspecified | CPT/HCPCS: 36415; 85610 ==

== ENCOUNTER 2022-05-06 07:13 | Outpatient (CLI) | payer OTHER | END 2022-05-06 19:19 | disposition home or self-care (01) | LOC: RAD 07:13 | PROVIDERS: ATTEND Internal Medicine | DX: M48.062 Spinal stenosis, lumbar region with neurogenic claudication (principal) ==

== ENCOUNTER 2022-06-27 07:40 | Outpatient (CLI) | payer OTHER | END 2022-06-27 19:28 | disposition home or self-care (01) | LOC: LABW 07:40 | PROVIDERS: ATTEND Internal Medicine | DX: E11.9 Type 2 diabetes mellitus without complications (principal); I73.9 Peripheral vascular disease, unspecified; Z51.81 Encounter for therapeutic drug level monitoring; Z79.899 Other long term (current) drug therapy | CPT/HCPCS: 36415; 83036; 85610 ==

== ENCOUNTER 2022-07-14 14:41 | Outpatient (CLI) | payer OTHER | END 2022-07-14 19:35 | disposition home or self-care (01) | LOC: RAD 14:41 | PROVIDERS: ATTEND Internal Medicine | DX: M25.561 Pain in right knee (principal) ==

== ENCOUNTER 2022-08-15 08:16 | Outpatient (CLI) | payer OTHER | END 2022-08-15 20:37 | disposition home or self-care (01) | LOC: LABW 08:16 | PROVIDERS: ATTEND Internal Medicine | DX: I73.9 Peripheral vascular disease, unspecified (principal) | CPT/HCPCS: 36415; 85610 ==

== ENCOUNTER 2022-09-12 14:16 | Outpatient (CLI) | payer OTHER | END 2022-09-12 19:36 | disposition home or self-care (01) | LOC: RAD 14:16 | PROVIDERS: ATTEND Internal Medicine | DX: J20.9 Acute bronchitis, unspecified (principal) ==

== ENCOUNTER 2022-09-21 07:44 | Outpatient (CLI) | payer OTHER | END 2022-09-21 19:08 | disposition home or self-care (01) | LOC: CT 07:44 | PROVIDERS: ATTEND Nurse Practitioner Family | DX: Z09 Encounter for follow-up examination after completed treatment for conditions other than malignant neoplasm (principal); Z87.891 Personal history of nicotine dependence ==

== ENCOUNTER 2022-09-26 08:20 | Outpatient (CLI) | payer OTHER | END 2022-09-26 19:53 | disposition home or self-care (01) | LOC: LABW 08:20 | PROVIDERS: ATTEND Internal Medicine | DX: E11.9 Type 2 diabetes mellitus without complications (principal); I73.9 Peripheral vascular disease, unspecified; Z51.81 Encounter for therapeutic drug level monitoring | CPT/HCPCS: 36415; 85610 ==

== ENCOUNTER 2022-11-21 13:50 | Outpatient (CLI) | payer OTHER | END 2022-11-21 21:39 | disposition home or self-care (01) | LOC: RAD 13:50 | PROVIDERS: ATTEND Internal Medicine | DX: M25.561 Pain in right knee (principal) ==

== ENCOUNTER 2022-12-20 07:39 | Outpatient (CLI) | payer OTHER ==
[2022-12-20 08:02] LABS: PLATELET COUNT 253 K/uL (142-355)
[2022-12-20 08:29] LABS: POTASSIUM 3.9 mmol/L (3.6-5.2)
== END 2022-12-20 23:02 | disposition home or self-care (01) ==
LOC: LABW 07:39
PROVIDERS: ATTEND Internal Medicine
DX: E11.9 Type 2 diabetes mellitus without complications (principal); N40.0 Benign prostatic hyperplasia without lower urinary tract symptoms
CPT/HCPCS: 36415; 80053; 80061; 81002; 83036; 84153; 84439; 84443; 85027

== ENCOUNTER 2023-01-09 13:13 | Emergency (ER) | payer OTHER ==
[~2023-01-09] VITALS: Ht 180.3 cm; Wt 149.7 kg
[2023-01-09 13:26] VITALS: BP 132/78; TEMP 98
[2023-01-09 14:38] LABS: PLATELET COUNT 218 K/uL (142-355)
[2023-01-09 14:45] LABS: POTASSIUM 4.1 mmol/L (3.6-5.2)
== END 2023-01-09 17:41 | disposition home or self-care (01) ==
LOC: ED 13:13
PROVIDERS: Emergency Medicine Emergency Medical Services
DX: R11.2 Nausea with vomiting, unspecified (principal); R10.84 Generalized abdominal pain
CPT/HCPCS: 80053; 81002; 82150; 83690; 83735; 85027; 96361; 96374; 96375; 99284; J2270; J2405; Q9963

== ENCOUNTER 2023-03-20 08:44 | Emergency (ER) | payer OTHER ==
[~2023-03-20] VITALS: Ht 180.3 cm; Wt 149.7 kg
[2023-03-20 08:47] VITALS: BP 128/71; TEMP 99
[2023-03-20 09:48] LABS: PLATELET COUNT 362 K/uL (142-355)
[2023-03-20 09:58] LABS: POTASSIUM 4.6 mmol/L (3.6-5.2)
== END 2023-03-20 12:23 | disposition home or self-care (01) ==
LOC: ED 08:44
PROVIDERS: Emergency Medicine Emergency Medical Services
DX: I89.0 Lymphedema, not elsewhere classified (principal)
CPT/HCPCS: 36415; 80048; 85027; 85610; 96372; 99283; J0696; J3490